=== PATIENT | female | born 1940 | race Two or more races ===

== ENCOUNTER 2017-06-17 13:11 | Outpatient (CLI) | payer OTHER | END 2017-06-17 13:19 | disposition home or self-care (01) | LOC: RAD 501 13:11 | DX: M54.5 Low back pain (principal) ==

== ENCOUNTER 2021-01-29 11:14 | Outpatient (CLI) | payer OTHER | END 2021-01-29 13:48 | disposition home or self-care (01) | LOC: SONOGRAMA 11:14 | PROVIDERS: ATTEND Pathology Anatomic Pathology & Clinical Pathology | DX: E04.2 Nontoxic multinodular goiter (principal); D34 Benign neoplasm of thyroid gland ==